=== PATIENT | male | born 1975 | race Caucasian/White ===

== ENCOUNTER 2016-10-14 14:11 | Emergency (ER) | payer SELFPAY ==
[2016-10-14] MEDS ORDERED: Sodium Chloride 0.9% 10 ML Syringe FLUSH PRN (15:06)
[2016-10-14] MEDS ORDERED: Sodium Chloride 0.9% 1,000 ML IV ONE ×2 (15:06→16:04)
[2016-10-14] MEDS ORDERED: LORazepam 2 MG/ML MDV IVPUSH ONE ×2 (15:08→18:51)
--- NOTE | 2016-10-14 15:39 | CR ---
Chest: Portable view of the chest was obtained. Comparison: No previous study. Heart size and mediastinum are normal. Lungs are clear. Bony structures are grossly intact. Impression: 1. Nothing acute is identified on portable chest x-ray. Diagnostic code #1
--- NOTE | 2016-10-14 15:52 | EDM.PDOC ---
ED HPI Behavioral Health - General Chief Complaint: Drug or Alcohol Abuse Stated Complaint: ALCOHOL DETOX Time Seen by Provider: 10/14/16 14:46 Source of Information: Reports: Patient, Family (mother) Exam Limitations: Reports: No limitations - History of Present Illness INITIAL COMMENTS - FREE TEXT/NARRATIVE: Patient presents for evaluation and treatment of alcohol intoxication. Patient has been using alcohol nearly daily for several decades. He is unable to tell me how much he drinks on a daily basis. He states the last 17 days he has been on a valadez. he has been drinking hard liquor and beer. He has been averaging about 8 shots a day and 8-12 beers a day. Patient reports that his last drink of alcohol was about 45 minutes prior to arrival in the ER. He is currently complaining of shakiness, weakness, sweaty, nausea and vomiting. He states that he vomited 3 times today. He denies any syncopal episodes, hematemesis, melena, hematochezia, diarrhea, pruritus or jaundice. Patient reports that he has been experiencing chest pain earlier. He denies any chest pain right now. He states he has "a little bit" of shortness of breath. He reports "a little bit "of lightheadedness and dizziness. Patient was admitted to our hospital on June 04, 2016 for a three-day stay in the hospital for alcohol detox. This was at the urging of his mother. After leaving the hospital he immediately started drinking again. He was seen in the ER on 06-09-16 where he was instructed to followup with [facility] for further alcohol treatment. He has not done this. He has not seen anybody else recently for his alcohol treatment. Patient was again seen in the ER on 07-16-16 following a syncopal episode. He left [place] at that time. Patient states that about 3 weeks ago he was sober for one week. During his sobriety he did not experience any seizures, auditory or visual hallucinations. He states he has never had these with alcohol withdrawal. Patient reports that he has previously utilized [facility] and [facility] for his alcohol addiction. He states he has not seen [facility] the last 3-4 years. The patient's mother is present at the bedside. She states that she feels his hands are more puffy than normal. She feels that he is retaining fluid. She also reports that his complexion is poor. Patient smokes about three quarters of a pack of cigarettes daily for the last 20 years. He states that he uses marijuana occasionally. - Related Data Allergies Allergy/AdvReac Type Severity Reaction Status Date / Time Penicillins Allergy Rash Verified 10/14/16 14:23 Home Medications: Home Meds LORazepam [Ativan] 1 mg PO ASDIRECTED #14 tablet 10/14/16 [Rx] Ondansetron [Zofran ODT] 4 mg PO Q6H PRN #12 tab.dis 10/14/16 [Rx] Past Medical History - Past Health History Medical/Surgical History: Denies Medical/Surgical History Psychiatric History: Reports: Addiction Other Psychiatric History: alcoholism Social & Family History - Family History Cardiac: Reports: Hypertension Other Cardiac Family History: mother with high cholesterol Neurological: Reports: CVA Other Neurological Family History: mother with "mini strokes". maternal uncle with Alzheimer's Endocrine/Metabolic: Reports: Diabetes, type II Oncologic: Reports: Pancreatic, Other (see below) Other Oncologic Family History: throat, melanoma - Tobacco Use Smoking Status *Q: Current Every Day Smoker Years of Tobacco use: 20 Packs/Tins Daily: 0.7 Used Tobacco, but Quit: No Second Hand Smoke Exposure: No - Caffeine Use Caffeine Use: Reports: Soda - Alcohol Use Days Per Week of Alcohol Use: 7 Number of Drinks Per Day: 10 Total Drinks Per Week: 70 - Recreational Drug Use Recreational Drug Use: Yes Drug Use in Last 12 Months: No Recreational Drug Type: Reports: Marijuana/Hashish, Other (see below) Other Recreational Drug Type: lorazapam Recreational Drug Use Frequency: Not Used In Over 1 Year - Living Situation & Occupation Living situation: Reports: single, with family Occupation: employed (at [email or web address] - Review of Systems Review Of Systems: See Below Constitutional: Reports: weakness, diaphoresis Respiratory: Reports: Shortness of Breath ("little bit") Cardiovascular: Reports: Chest pain (earlier; denies any current chest pain) GI/Abdominal: Reports: Nausea, Vomiting (x3 today). Denies: Abdominal pain, Bloody stool, Diarrhea, Hematemesis, Hematochezia, Melena Musculoskeletal: Reports: other (mother feels hands are swollen) Neurological: Reports: Tremors (right hand), Weakness. Denies: Seizure Psychiatric: Denies: Hallucinations ED EXAM, BEHAVIORAL HEALTH - Physical Exam Exam: See Below Exam Limited By: No limitations General Appearance: alert, WD/WN, no apparent distress Throat/Mouth: Normal oropharynx, Normal voice, No airway compromise Respiratory/Chest: no respiratory distress, lungs clear, normal breath sounds Cardiovascular: normal peripheral pulses, regular rate, rhythm, no edema, no murmur GI/Abdominal: normal bowel sounds, soft, non tender COURSE, BEHAVIORAL HEALTH COMP - Course Vital Signs: Last Vital Signs Temp 37.0 C 10/14/16 19:48 Pulse 90 10/14/16 19:48 Resp 16 10/14/16 19:48 BP 148/98 H 10/14/16 19:48 Pulse Ox 99 10/14/16 19:48 Orders, Labs, Meds: Active Orders 24 hr Category Date Time Status EKG 12 Lead [EKG Documentation Completion] [RC] STAT Care 10/14/16 15:09 Active Peripheral IV Care [RC] . DIRECTED Care 10/14/16 15:07 Active Peripheral IV Insertion Adult [OM.PC] Routine Oth 10/14/16 15:06 Ordered Laboratory Tests 10/14/16 10/14/16 10/14/16 Range/Units 15:10 15:10 15:35 WBC 6.55 (4.23-9.07) K/mm3 RBC 5.40 (4.63-6.08) M/mm3 Hgb 16.4 (13.7-17.5) gm/L Hct 47.3 (40.1-51.0) % MCV 87.6 (79.0-92.2) fl MCH 30.4 (25.7-32.2) pg MCHC 34.7 (32.2-35.5) g/dl RDW Std Deviation 45.4 H (35.1-43.9) fL Plt Count 270 (163-337) K/mm3 MPV 9.7 (9.4-12.3) fl Neut % (Auto) 60.7 (34.0-67.9) % Lymph % (Auto) 32.2 (21.8-53.1) % [place] % (Auto) 6.0 (5.3-12.2) % Eos % (Auto) 0.6 L (0.8-7.0) Baso % (Auto) 0.5 (0.1-1.2) % Neut # (Auto) 3.98 (1.78-5.38) K/mm3 Lymph # (Auto) 2.11 (1.32-3.57) K/mm3 [place] # (Auto) 0.39 (0.30-0.82) K/mm3 Eos # (Auto) 0.04 (0.04-0.54) K/mm3 Baso # (Auto) 0.03 (0.01-0.08) K/mm3 PT (8.0-13.0) SECONDS INR APTT (22-36) SECONDS Sodium 134 L (136-145) mEq/L Potassium 4.1 (3.5-5.1) mEq/L Chloride 95 L (98-107) mEq/L Carbon Dioxide 23 (21-32) mEq/L Anion Gap 20.1 H (5-15) BUN 4 L (7-18) mg/dL Creatinine 0.7 (0.7-1.3) mg/dL Est Cr Clr Drug Dosing 121.50 mL/min Estimated GFR (MDRD) > 60 (>60) mL/min BUN/Creatinine Ratio 5.7 L (14-18) Glucose 106 (74-106) mg/dL Calcium 9.0 (8.5-10.1) mg/dL Magnesium 2.3 (1.8-2.4) mg/dl Total Bilirubin 0.5 (0.2-1.0) mg/dL AST 31 (15-37) U/L ALT 40 (16-63) U/L Alkaline Phosphatase 98 (46-116) U/L Troponin I < 0.017 (0.00-0.056) ng/mL Total Protein 8.0 (6.4-8.2) g/dl Albumin 4.3 (3.4-5.0) g/dl Globulin 3.7 gm/dL Albumin/Globulin Ratio 1.2 (1-2) Urine Color (Yellow) Urine Appearance (Clear) Urine pH (5.0-8.0) Ur Specific [place] (1.005-1.030) Urine Protein (Negative) Urine Glucose (UA) (Negative) Urine Ketones (Negative) Urine Occult Blood (Negative) Urine Nitrite (Negative) Urine Bilirubin (Negative) Urine Urobilinogen (0.2-1.0) Ur Leukocyte Esterase (Negative) Urine RBC (0-5) /hpf Urine WBC (0-5) /hpf Ur Epithelial Cells (0-5) /hpf Urine Bacteria (FEW) /hpf Urine Mucus (FEW) /hpf Urine Opiates Screen Negative (NEGATIVE) Ur Buprenorphine Scrn Negative (NEGATIVE) Ur Oxycodone Screen Negative (NEGATIVE) Urine Methadone Screen Negative (NEGATIVE) Ur Propoxyphene Screen Negative (NEGATIVE) Ur Barbiturates Screen Negative (NEGATIVE) Ur Tricyclics Screen Negative (NEGATIVE) Ur Phencyclidine Scrn Negative (NEGATIVE) Ur Amphetamine Screen Negative (NEGATIVE) U Methamphetamines Scrn Negative (NEGATIVE) U Benzodiazepines Scrn Negative (NEGATIVE) U Cocaine Metab Screen Negative (NEGATIVE) U Marijuana (THC) Screen Negative (NEGATIVE) Ethyl Alcohol 0.30 (0.00) gm% 10/14/16 10/14/16 10/14/16 Range/Units 15:35 17:45 17:45 WBC (4.23-9.07) K/mm3 RBC (4.63-6.08) M/mm3 Hgb (13.7-17.5) gm/L Hct (40.1-51.0) % MCV (79.0-92.2) fl MCH (25.7-32.2) pg MCHC (32.2-35.5) g/dl RDW Std Deviation (35.1-43.9) fL Plt Count (163-337) K/mm3 MPV (9.4-12.3) fl Neut % (Auto) (34.0-67.9) % Lymph % (Auto) (21.8-53.1) % [place] % (Auto) (5.3-12.2) % Eos % (Auto) (0.8-7.0) Baso % (Auto) (0.1-1.2) % Neut # (Auto) (1.78-5.38) K/mm3 Lymph # (Auto) (1.32-3.57) K/mm3 [place] # (Auto) (0.30-0.82) K/mm3 Eos # (Auto) (0.04-0.54) K/mm3 Baso # (Auto) (0.01-0.08) K/mm3 PT 10.5 (8.0-13.0) SECONDS INR 0.97 APTT 28 (22-36) SECONDS Sodium (136-145) mEq/L Potassium (3.5-5.1) mEq/L Chloride (98-107) mEq/L Carbon Dioxide (21-32) mEq/L Anion Gap (5-15) BUN (7-18) mg/dL Creatinine (0.7-1.3) mg/dL Est Cr Clr Drug Dosing mL/min Estimated GFR (MDRD) (>60) mL/min BUN/Creatinine Ratio (14-18) Glucose (74-106) mg/dL Calcium (8.5-10.1) mg/dL Magnesium (1.8-2.4) mg/dl Total Bilirubin (0.2-1.0) mg/dL AST (15-37) U/L ALT (16-63) U/L Alkaline Phosphatase (46-116) U/L Troponin I (0.00-0.056) ng/mL Total Protein (6.4-8.2) g/dl Albumin (3.4-5.0) g/dl Globulin gm/dL Albumin/Globulin Ratio (1-2) Urine Color Yellow (Yellow) Urine Appearance Clear (Clear) Urine pH 6.5 (5.0-8.0) Ur Specific [place] 1.010 (1.005-1.030) Urine Protein Negative (Negative) Urine Glucose (UA) Negative (Negative) Urine Ketones Negative (Negative) Urine Occult Blood Negative (Negative) Urine Nitrite Negative (Negative) Urine Bilirubin Negative (Negative) Urine Urobilinogen 0.2 (0.2-1.0) Ur Leukocyte Esterase Negative (Negative) Urine RBC Not seen (0-5) /hpf Urine WBC 0-5 (0-5) /hpf Ur Epithelial Cells Not seen (0-5) /hpf Urine Bacteria Rare (FEW) /hpf Urine Mucus Not seen (FEW) /hpf Urine Opiates Screen (NEGATIVE) Ur Buprenorphine Scrn (NEGATIVE) Ur Oxycodone Screen (NEGATIVE) Urine Methadone Screen (NEGATIVE) Ur Propoxyphene Screen (NEGATIVE) Ur Barbiturates Screen (NEGATIVE) Ur Tricyclics Screen (NEGATIVE) Ur Phencyclidine Scrn (NEGATIVE) Ur Amphetamine Screen (NEGATIVE) U Methamphetamines Scrn (NEGATIVE) U Benzodiazepines Scrn (NEGATIVE) U Cocaine Metab Screen (NEGATIVE) U Marijuana (THC) Screen (NEGATIVE) Ethyl Alcohol 0.23 (0.00) gm% Medications Discontinued Medications Generic Name Dose Route Start Last Admin Trade Name Haydee PRN Reason Stop Dose Admin Sodium Chloride 1,000 mls @ 999 mls/hr 10/14/16 15:06 10/14/16 15:24 Normal Saline IV 10/14/16 16:06 999 mls/hr ONETIME ONE Administration Sodium Chloride 1,000 mls @ 999 mls/hr 10/14/16 16:04 10/14/16 16:20 Normal Saline IV 10/14/16 17:04 999 mls/hr ONETIME ONE Administration Lorazepam 0.5 mg 10/14/16 15:08 10/14/16 15:24 Ativan IVPUSH 10/14/16 15:09 0.5 mg ONETIME ONE Administration Lorazepam 0.5 mg 10/14/16 18:51 10/14/16 19:46 Ativan IVPUSH 10/14/16 18:52 Not Given ONETIME ONE Sodium Chloride 10 ml 10/14/16 15:06 10/14/16 15:34 Saline Flush FLUSH 10 ml ASDIRECTED PRN Administration Keep Vein Open Re-Assessment/Re-Exam: Chest [address] Brennan: 1. Nothing acute is identified on portable chest x-ray. EKG reviewed by myself and Dr. Brown. Shows a NSR of 78 bpm. J point elevation - no ischemic changes. 16:42 Labs have returned. Deepika social human services assistants in ER to help provide additional resources for both the patient and his mother for alcohol treatment in [place]. 17:29 Spoke with [facility] human services. They will come over and evaluate the patient. [facility] Plan will be finish off the second liter of normal saline recheck alcohol. If he is okayed to go to [facility] , we will let him go to the crisis bed tonight. 18:10 [facility] will take the patient tonight. RN will call for further instruction. 18:50 Additional 0.5mg IV ativan given for tonight. Ativan taper written to be started tomorrow. Zofran as needed for nausea. Repeat etoh returned at 0.23 Medical Clearance: 10/14/16 18:45 Patient is clear to go to [facility] to the crisis bed for care. Discharge vs Psych Eval/Treatment:: 10/14/16 18:46 Plan Go to the [facility] crisis bed at the [facility] Departure - Departure Time of Disposition: 18:59 Disposition: Home, Self-Care 01 Condition: fair Clinical Impression: Alcohol abuse Prescriptions: LORazepam [Ativan] 1 mg PO ASDIRECTED #14 tablet Ondansetron [Zofran ODT] 4 mg PO Q6H PRN #12 tab.dis PRN Reason: Nausea Instructions: Alcohol Use Disorder Referrals: Thierno Douglas MD [Primary Care Provider] - Additional Instructions: Go to [facility] the [facility]. You have been accepted to the crisis bed. Zofran every 6 hours sublingual for nausea. Ativan as prescribed you will receive Ativan every 4 hours day 1, Day 2 every 6 hours, day 3 3 times a day, day 4 and 5 twice a day. I recommend you establish with a family medicine provider. Please return to the ER should your symptoms change or worsen. - My Orders Last 24 Hours: My Active Orders 10/14/16 15:06 Peripheral IV Insertion Adult [OM.PC] Routine 10/14/16 15:07 Peripheral IV Care [RC] . DIRECTED 10/14/16 15:09 EKG 12 Lead [EKG Documentation Completion] [RC] STAT - Assessment/Plan Last 24 Hours: My Active Orders 10/14/16 15:06 Peripheral IV Insertion Adult [OM.PC] Routine 10/14/16 15:07 Peripheral IV Care [RC] . DIRECTED 10/14/16 15:09 EKG 12 Lead [EKG Documentation Completion] [RC] STAT
[2016-10-14 19:50] VITALS: BP 148/98
== END 2016-10-14 19:10 | disposition home or self-care (01) ==
LOC: JD.ED 14:11
DX: F10.10 Alcohol abuse, uncomplicated (principal); F17.210 Nicotine dependence, cigarettes, uncomplicated; Z88.0 Allergy status to penicillin; Z79.899 Other long term (current) drug therapy
CPT/HCPCS: 36415; 71010; 80053; 80306; 81001; 83735; 84484; 85025; 85610; 85730; 93005; 96361; 96374; 99285; G0480; J2060; J7040; J7050; 99284

== ENCOUNTER 2018-08-01 16:32 | Emergency (ER) | payer BC ==
[2018-08-01 17:08] VITALS: BP 145/95
[2018-08-01] MEDS ORDERED: Sodium Chloride 0.9% 10 ML Syringe FLUSH PRN (17:37)
[2018-08-01] MEDS ORDERED: cefTRIAXone 2 GM in Sodium Chloride 0.9% 100 ML IV ONE (17:39)
--- NOTE | 2018-08-01 17:44 | EDM.PDOC ---
<Shavon Whalen - Last Filed: 08/01/18 19:12> ED HPI GENERAL MEDICAL PROBLEM - General Chief Complaint: ENT Problem Stated Complaint: SORE & SWOLLEN THROAT/FEVER Time Seen by Provider: 08/01/18 17:10 Source of Information: Reports: Patient, Family (), RN Notes Reviewed History Limitations: Reports: No Limitations - History of Present Illness INITIAL COMMENTS - FREE TEXT/NARRATIVE: Patient is a 43 year old male accompanied by his today in the ED for throat pain and persistent fever. Patient states that he became ill 5 days ago with a sore throat, postnasal drip, and cough. He was seen at the walk in clinic and was found to have a negative strep swab. He progressively became worse, with throat pain, right ear pain, and fevers around 102.0 F. He states he has not been able to eat or drink for the past two days because of the intense throat pain. He also complains of right eye pain, and pain under the jaw on the right side. He states that last night at 10:30 pm he took a Percoset 325/5 which helped him sleep for 2 hours. He took another percoset at 4am. He endorses fever, chills, and nightsweats. He has difficulty opening his mouth. He has had decreased urination in the past few days and feels that he is dehydrated. He denies any known sick contacts and has no recent travel history. Treatments SENIOR ACCOUNTING ASSOCIATE: Reports: Other (see below) Other Treatments SENIOR ACCOUNTING ASSOCIATE: no tylenol today Throat Pain Score (Numeric/FACES): 10 - Related Data Allergies Allergy/AdvReac Type Severity Reaction Status Date / Time Penicillins Allergy Rash Verified 10/14/16 14:23 Home Meds: Home Meds Clindamycin HCl 450 mg PO TID #90 capsule 08/01/18 [Rx] Hydrocodone/Acetaminophen [Hydrocodon-Acetaminophen 5-325] 1 - 2 each PO Q6HR PRN #10 tablet 08/01/18 [Rx] Past Medical History - Past Health History Medical/Surgical History: Denies Medical/Surgical History Psychiatric History: Reports: Addiction Other Psychiatric History: alcoholism Social & Family History - Family History Cardiac: Reports: Hypertension Other Cardiac Family History: mother with high cholesterol Neurological: Reports: CVA Other Neurological Family History: mother with "mini strokes". maternal uncle with Alzheimer's Endocrine/Metabolic: Reports: Diabetes, type II Oncologic: Reports: Pancreatic, Other (See Below) Other Oncologic Family History: throat, melanoma - Caffeine Use Caffeine Use: Reports: Soda - Living Situation & Occupation Living situation: Reports: Single, with Family Occupation: Employed ED ROS ENT - Review of Systems Review Of Systems: ROS reveals no pertinent complaints other than HPI. ED EXAM, ENT - Physical Exam Exam: See Below General Appearance: Alert, WD/WN, Mild Distress Ears: TM Fluid (loss of landmarks in right TM) Nose: Nasal Discharge, Nasal Swelling Mouth/Throat: Pharyngeal Erythema, Throat Pain, Throat Swelling, Tonsillar Erythema, Tonsillar Swelling, Trismus, Uvular Deviation (deviates to the left) Head: Atraumatic, Normocephalic Neck: Lymphadenopathy (R), Tender Lateral (right sided tenderness on palpation) Respiratory/Chest: No Respiratory Distress, Chest Non-Tender Cardiovascular: Regular Rate, Rhythm, No Edema, No Murmur, No Rub GI/Abdominal: Normal Bowel Sounds, Soft, Non-Tender, No Distention, No Mass Neurological: Alert, Oriented, Normal Cognition Psychiatric: Normal Affect, Normal Mood Course - Vital Signs Last Recorded V/S: Last Vital Signs Temp 103.6 F H 08/01/18 17:07 Pulse 102 H 08/01/18 17:07 Resp 20 08/01/18 17:07 BP 145/95 H 08/01/18 17:07 Pulse Ox 97 08/01/18 17:07 - Orders/Labs/Meds Orders: Active Orders 24 hr Category Date Time Status Cardiac Monitoring [RC] . DIRECTED Care 08/01/18 17:37 Active Peripheral IV Care [RC] . DIRECTED Care 08/01/18 17:38 Active CULTURE STREP A CONFIRMATION [RM] Stat Lab 08/01/18 17:35 Results STREP SCRN A RAPID W CULT CONF [RM] Stat Lab 08/01/18 17:35 Results Sodium Chloride 0.9% [Normal Saline] 1,000 ml Med 08/01/18 17:45 Active IV .BOLUS Sodium Chloride 0.9% [Saline Flush] Med 08/01/18 17:37 Active 10 ml FLUSH ASDIRECTED PRN Peripheral IV Insertion Adult [OM.PC] Stat Oth 08/01/18 17:37 Ordered Medication Orders Sodium Chloride (Normal Saline) 1,000 mls @ 1,000 mls/hr IV .BOLUS ELGIN Last Admin: 08/01/18 17:52 Dose: 1,000 mls/hr Sodium Chloride (Saline Flush) 10 ml FLUSH ASDIRECTED PRN PRN Reason: Keep Vein Open Last Admin: 08/01/18 17:52 Dose: 10 ml Labs: Laboratory Tests 08/01/18 08/01/18 Range/Units 17:50 17:50 WBC 13.55 H (4.23-9.07) K/mm3 RBC 5.26 (4.63-6.08) M/mm3 Hgb 15.7 (13.7-17.5) gm/L Hct 46.0 (40.1-51.0) % MCV 87.5 (79.0-92.2) fl MCH 29.8 (25.7-32.2) pg MCHC 34.1 (32.2-35.5) g/dl RDW Std Deviation 43.0 (35.1-43.9) fL Plt Count 274 (163-337) K/mm3 MPV 10.2 (9.4-12.3) fl Neut % (Auto) 81.4 H (34.0-67.9) % Lymph % (Auto) 9.0 L (21.8-53.1) % [place] % (Auto) 8.9 (5.3-12.2) % Eos % (Auto) 0.4 L (0.8-7.0) Baso % (Auto) 0.2 (0.1-1.2) % Neut # (Auto) 11.02 H (1.78-5.38) K/mm3 Lymph # (Auto) 1.22 L (1.32-3.57) K/mm3 [place] # (Auto) 1.21 H (0.30-0.82) K/mm3 Eos # (Auto) 0.05 (0.04-0.54) K/mm3 Baso # (Auto) 0.03 (0.01-0.08) K/mm3 Manual Slide Review Normal smear Sodium 139 (136-145) mEq/L Potassium 3.5 (3.5-5.1) mEq/L Chloride 102 (98-107) mEq/L Carbon Dioxide 25 (21-32) mEq/L Anion Gap 15.5 H (5-15) BUN 6 L (7-18) mg/dL Creatinine 0.9 (0.7-1.3) mg/dL Est Cr Clr Drug Dosing 96.04 mL/min Estimated GFR (MDRD) > 60 (>60) mL/min BUN/Creatinine Ratio 6.7 L (14-18) Glucose 116 H (74-106) mg/dL Calcium 9.2 (8.5-10.1) mg/dL Total Bilirubin 0.8 (0.2-1.0) mg/dL AST 12 L (15-37) U/L ALT 18 (16-63) U/L Alkaline Phosphatase 106 (46-116) U/L C-Reactive Protein 7.9 H* (<1.0) mg/dL Total Protein 8.2 (6.4-8.2) g/dl Albumin 4.1 (3.4-5.0) g/dl Globulin 4.1 gm/dL Albumin/Globulin Ratio 1.0 (1-2) Meds: Medications Generic Name Dose Route Start Last Admin Trade Name Freq PRN Reason Stop Dose Admin Sodium Chloride 1,000 mls @ 1,000 mls/hr 08/01/18 17:45 08/01/18 17:52 Normal Saline IV 1,000 mls/hr .BOLUS ELGIN Administration Sodium Chloride 10 ml 08/01/18 17:37 08/01/18 17:52 Saline Flush FLUSH 10 ml ASDIRECTED PRN Administration Keep Vein Open Discontinued Medications Generic Name Dose Route Start Last Admin Trade Name Haydee PRN Reason Stop Dose Admin Hydromorphone HCl 0.5 mg 08/01/18 18:08 08/01/18 18:35 Dilaudid IVPUSH 08/01/18 18:09 0.5 mg ONETIME ONE Administration Ceftriaxone Sodium 2 gm/ 100 mls @ 200 mls/hr 08/01/18 17:39 08/01/18 17:53 Sodium Chloride IV 08/01/18 18:08 200 mls/hr ONETIME ONE Administration Iopamidol 80 ml 08/01/18 18:25 Isovue-300 (61%) IVPUSH 08/01/18 18:26 ONETIME ONE Ketorolac Tromethamine 30 mg 08/01/18 18:08 08/01/18 18:34 Toradol IVPUSH 08/01/18 18:09 30 mg ONETIME ONE Administration Methylprednisolone Sodium Succinate 125 mg 08/01/18 17:55 08/01/18 18:03 Solu-Medrol IVPUSH 08/01/18 17:56 125 mg ONETIME ONE Administration - Re-Assessments/Exams Free Text/Narrative Re-Assessment/Exam: 08/01/18 19:05 Patient is "feeling so much better" after some Tordol, steroid, and IV fluids. We are still waiting on the CT view the extent of the abscess. Patient does have WBC count of 13.55 and CRP 7.9. Patient is being treated with ceftriaxone IV (patient is allergic to PCN). Strep quick swab was negative, culture pending. Influenza swab negative. 08/01/18 19:13 Departure - Departure Disposition: Home, Self-Care 01 Clinical Impression: Acute bacterial tonsillitis Pharyngitis Qualifiers: Pharyngitis/tonsillitis etiology: other specified organisms Qualified Code(s): J02.8 - Acute pharyngitis due to other specified organisms - Discharge Information Prescriptions: Hydrocodone/Acetaminophen [Hydrocodon-Acetaminophen 5-325] 1 - 2 each PO Q6HR PRN #10 tablet PRN Reason: Pain Clindamycin HCl 450 mg PO TID #90 capsule Referrals: PCP,None [Primary Care Provider] - Mike Bowman MD [Ordering Only Provider] - 1 Week Forms: ED Department Discharge, ED Return to Work/School Form Additional Instructions: Take clindamycin 450mg 3 times per day for 10 days. Take motrin or aleve for pain. If that does not help, take a hydrocodone. Please return if you are worse or see Dr Bowman. - My Orders Last 24 Hours: My Active Orders 08/01/18 17:35 CULTURE STREP A CONFIRMATION [RM] Stat STREP SCRN A RAPID W CULT CONF [RM] Stat 08/01/18 17:37 Cardiac Monitoring [RC] . DIRECTED Sodium Chloride 0.9% [Saline Flush] 10 ml FLUSH ASDIRECTED PRN Peripheral IV Insertion Adult [OM.PC] Stat 08/01/18 17:38 Peripheral IV Care [RC] . DIRECTED 08/01/18 17:45 Sodium Chloride 0.9% [Normal Saline] 1,000 ml IV .BOLUS - Assessment/Plan Last 24 Hours: My Active Orders 08/01/18 17:35 CULTURE STREP A CONFIRMATION [RM] Stat STREP SCRN A RAPID W CULT CONF [RM] Stat 08/01/18 17:37 Cardiac Monitoring [RC] . DIRECTED Sodium Chloride 0.9% [Saline Flush] 10 ml FLUSH ASDIRECTED PRN Peripheral IV Insertion Adult [OM.PC] Stat 08/01/18 17:38 Peripheral IV Care [RC] . DIRECTED 08/01/18 17:45 Sodium Chloride 0.9% [Normal Saline] 1,000 ml IV .BOLUS <Ja Lester - Last Filed: 08/01/18 20:19> Course - Re-Assessments/Exams Free Text/Narrative Re-Assessment/Exam: 08/01/18 20:09 I examined the patient myself and I agree with Shavon's assessment and plan. I ordered labs, toradol, steroids and a CT of his neck. His WBC was elevated at 13.55. His anion gap was elevated at 15.5. His glucose was 116. His CRP was elevated at 7.9. The CT shows soft tissue swelling in the region of the right palatine tonsil with soft tissue swelling extending inferiorly to level of the top of the larynx. Focal low density region is seen measuring 1.3cm felt to represent focal infection rather than well-defined abscess. This does put the patient at risk for future abscess. Inflammatory thickening of the uvula. Slightly prominent lymph nodes which are felt to be reactive. I gave him a dose of rocephin 2 grams here. I will get him on some clindamycin and have him follow up with ENT if he is not better. Departure - Departure Time of Disposition: 20:15 Condition: Good - Discharge Information *PRESCRIPTION DRUG MONITORING PROGRAM REVIEWED*: No *COPY OF PRESCRIPTION DRUG MONITORING REPORT IN PATIENT DION: No
[2018-08-01] MEDS ORDERED: Sodium Chloride 0.9% 1,000 ML IV SCH (17:45)
[2018-08-01] MEDS ORDERED: methylPREDNISolone Sodium Succinate 125 MG/2 ML SDV IVPUSH ONE (17:55)
[2018-08-01] MEDS ORDERED: HYDROmorphone 1 MG/ML Syringe IVPUSH ONE (18:08)
[2018-08-01] MEDS ORDERED: Ketorolac 30 MG/ML SDV IVPUSH ONE (18:08)
[2018-08-01] MEDS ORDERED: Iopamidol 612 MG/ML 100 ML Bottle IVPUSH ONE (18:25)
--- NOTE | 2018-08-01 19:46 | CT ---
CT neck Technique: Multiple axial sections through the neck were obtained. Intravenous contrast was utilized. Reconstructed coronal and sagittal images were reviewed. Findings: Soft tissue swelling is seen within the region of the right palatine tonsil. Low-density area seen in this region measuring 1.3 cm which most likely represents focal infection rather than a well-defined abscess although patient is at risk for future abscess. Edema extends more inferiorly to the top of the larynx. Thickening of the uvula is also noted. Epiglottis is within normal limits. Slightly prominent lymph nodes are seen which likely are reactive. Paranasal sinuses are clear. Parotid and submandibular salivary glands are within normal limits. Thyroid gland appears within normal limits. Small portion of the visualized lung apices are clear. Impression: 1. Soft tissue swelling in the region of the right palatine tonsil with soft tissue swelling extending inferiorly to level of the top of the larynx. Focal low density region is seen measuring 1.3 cm felt to represent focal infection rather than well-defined abscess. This does put the patient at risk for future abscess. 2. Inflammatory thickening of the uvula. 3. Slightly prominent lymph nodes which are felt to be reactive. Diagnostic code #3
== END 2018-08-01 20:30 | disposition home or self-care (01) ==
LOC: JD.ED 16:32
DX: J03.80 Acute tonsillitis due to other specified organisms (principal); J02.8 Acute pharyngitis due to other specified organisms; B96.89 Other specified bacterial agents as the cause of diseases classified elsewhere
CPT/HCPCS: 36415; 70491; 80053; 85025; 86140; 87081; 87430; 87804; 96361; 96365; 96375; 99284; J0696; J1170; J1885; J2930; J7030; J7040; 99283

== ENCOUNTER 2018-08-03 18:37 | Emergency (ER) | payer BC ==
[2018-08-03 18:46] VITALS: BP 131/93
[2018-08-03] MEDS ORDERED: Sodium Chloride 0.9% 10 ML Syringe FLUSH PRN (19:16)
[2018-08-03] MEDS ORDERED: HYDROmorphone 1 MG/ML Syringe IVPUSH ONE ×2 (19:16→20:54)
[2018-08-03] MEDS ORDERED: Sodium Chloride 0.9% 500 ML IV ONE (19:18)
[2018-08-03] MEDS ORDERED: cefTRIAXone 2 GM in Sodium Chloride 0.9% 100 ML IV ONE (19:27)
[2018-08-03] MEDS ORDERED: methylPREDNISolone Sodium Succinate 125 MG/2 ML SDV IVPUSH ONE (19:27)
[2018-08-03] MEDS ORDERED: Ketorolac 30 MG/ML SDV IVPUSH SCH (19:30)
[2018-08-03] MEDS ORDERED: cefTRIAXone 2 GM AdvVial IV ONE (19:45)
[2018-08-03] MEDS ORDERED: Sodium Chloride 0.9% 100 ML ONE (19:45)
--- NOTE | 2018-08-03 20:07 | EDM.PDOC ---
ED HPI GENERAL MEDICAL PROBLEM - General Chief Complaint: ENT Problem Stated Complaint: SORE THROAT Time Seen by Provider: 08/03/18 18:54 Source of Information: Reports: Patient, Family (spouse), RN Notes Reviewed - History of Present Illness INITIAL COMMENTS - FREE TEXT/NARRATIVE: 43 year old male comes in with continued throat pain, sensation of swelling R neck. Developed sore throat about 6 days ago, was seen at clinic about 4 days ago, neg strep so nothing done. Pain and infection worsened so did come to ED 2 days ago, did have labs, neck CT which showed area of infection R neck, no abcess. He was given IV abx, pain meds, felt better. has run out of pain meds , pain still quite severe, especially to swallow. Still has low grade fever this evening. On clindamycin 450 tid, not sure how many doses he has taken. - Related Data Allergies Allergy/AdvReac Type Severity Reaction Status Date / Time Penicillins Allergy Rash Verified 08/03/18 18:46 Home Meds: Home Meds Clindamycin HCl 450 mg PO TID #90 capsule 08/01/18 [Rx] Hydrocodone/Acetaminophen [Hydrocodon-Acetaminophen 5-325] 1 - 2 each PO Q6HR PRN #10 tablet 08/01/18 [Rx] Past Medical History - Past Health History Medical/Surgical History: Denies Medical/Surgical History Psychiatric History: Reports: Addiction Other Psychiatric History: alcoholism Social & Family History - Family History Family Medical History: Noncontributory Cardiac: Reports: Hypertension Other Cardiac Family History: mother with high cholesterol Neurological: Reports: CVA Other Neurological Family History: mother with "mini strokes". maternal uncle with Alzheimer's Endocrine/Metabolic: Reports: Diabetes, type II Oncologic: Reports: Pancreatic, Other (See Below) Other Oncologic Family History: throat, melanoma - Tobacco Use Smoking Status *Q: Current Every Day Smoker Years of Tobacco use: 28 Packs/Tins Daily: 0.5 - Caffeine Use Caffeine Use: Reports: Energy Drinks, Soda - Recreational Drug Use Recreational Drug Use: No - Living Situation & Occupation Living situation: Reports: Single, with Family Occupation: Employed ED ROS ENT - Review of Systems Review Of Systems: See Below Constitutional: Reports: Fever, Chills HEENT: Reports: Throat Pain, Throat Swelling (R throat) Respiratory: Denies: Shortness of Breath, Cough Cardiovascular: Denies: Chest Pain GI/Abdominal: Denies: Abdominal Pain, Nausea, Vomiting Musculoskeletal: Reports: No Symptoms Skin: Denies: Rash Neurological: Reports: No Symptoms ED EXAM, ENT - Physical Exam Exam: See Below General Appearance: Alert, Mild Distress Mouth/Throat: Tonsillar Exudates (bilat, more on the right), Tonsillar Swelling (bilat, more on the right) Head: No: Facial Swelling, Facial Tenderness Neck: Lymphadenopathy (L), Lymphadenopathy (R), Tender Lateral (R sided tenderness and fullness, feels mildly more swollen than right, not visually more swollen. ) Respiratory/Chest: No Respiratory Distress GI/Abdominal: Soft, Non-Tender Back: No: CVA Tenderness (L), CVA Tenderness (R) Extremities: Normal Inspection, Normal Range of Motion Neurological: Alert, Oriented, No Motor/Sensory Deficits Skin: Warm, Dry, Normal Color Course - Vital Signs Last Recorded V/S: Last Vital Signs Temp 100.9 F H 08/03/18 18:41 Pulse 82 08/03/18 18:41 Resp 18 08/03/18 18:41 BP 131/93 H 08/03/18 18:41 Pulse Ox 97 08/03/18 18:41 - Orders/Labs/Meds Orders: Active Orders 24 hr Category Date Time Status Peripheral IV Care [RC] . DIRECTED Care 08/03/18 19:18 Active Ketorolac [Toradol] Med 08/03/18 19:30 Active 30 mg IVPUSH ONETIME Sodium Chloride 0.9% [Saline Flush] Med 08/03/18 19:16 Active 10 ml FLUSH ASDIRECTED PRN Peripheral IV Insertion Adult [OM.PC] Stat Oth 08/03/18 19:16 Ordered Medication Orders Ketorolac Tromethamine (Toradol) 30 mg IVPUSH ONETIME ELGIN Last Admin: 08/03/18 19:57 Dose: 30 mg Sodium Chloride (Saline Flush) 10 ml FLUSH ASDIRECTED PRN PRN Reason: Keep Vein Open Last Admin: 08/03/18 19:42 Dose: 10 ml Meds: Medications Generic Name Dose Route Start Last Admin Trade Name Freq PRN Reason Stop Dose Admin Ketorolac Tromethamine 30 mg 08/03/18 19:30 08/03/18 19:57 Toradol IVPUSH 30 mg ONETIME ELGIN Administration Sodium Chloride 10 ml 08/03/18 19:16 08/03/18 19:42 Saline Flush FLUSH 10 ml ASDIRECTED PRN Administration Keep Vein Open Discontinued Medications Generic Name Dose Route Start Last Admin Trade Name Haydee PRN Reason Stop Dose Admin Ceftriaxone Sodium Confirm 08/03/18 19:45 08/03/18 20:02 Rocephin Administered 08/03/18 19:46 Not Given Dose 2 gm IV .STK-MED ONE Hydromorphone HCl 1 mg 08/03/18 19:16 08/03/18 19:42 Dilaudid IVPUSH 08/03/18 19:17 1 mg ONETIME ONE Administration Sodium Chloride 500 mls @ 999 mls/hr 08/03/18 19:18 08/03/18 19:40 Normal Saline IV 08/03/18 19:48 999 mls/hr .BOLUS ONE Administration Ceftriaxone Sodium 2 gm/ 100 mls @ 200 mls/hr 08/03/18 19:27 08/03/18 19:58 Sodium Chloride IV 08/03/18 19:56 200 mls/hr ONETIME ONE Administration Sodium Chloride Confirm 08/03/18 19:45 08/03/18 20:02 Normal Saline Administered 08/03/18 19:46 Not Given Dose 100 mls @ as directed .ROUTE .STK-MED ONE Methylprednisolone Sodium Succinate 125 mg 08/03/18 19:27 08/03/18 19:57 Solu-Medrol IVPUSH 08/03/18 19:28 125 mg ONETIME ONE Administration - Re-Assessments/Exams Free Text/Narrative Re-Assessment/Exam: 08/03/18 20:41 Feeling much better after Dilaudid 0.5 mg IV, torodol 30 IV, has also been given solumedrol 125 IV. Have discussed option to repeat CT to see if abcess developing, downside more radiation exposure to neck. He prefers to wait, give this more time to get better. I am going to keep him on the clindamycin 450 tid , add cephalexin 500 qid for 1 week, add prednisone 40 mg q AM for 5 days. Discharge instr. as documented. Departure - Departure Time of Disposition: 20:44 Disposition: Home, Self-Care 01 Condition: Fair Clinical Impression: Acute tonsillitis Qualifiers: Pharyngitis/tonsillitis etiology: unspecified etiology Qualified Code(s): J03.90 - Acute tonsillitis, unspecified - Discharge Information Referrals: PCP,None [Primary Care Provider] - Forms: ED Department Discharge Additional Instructions: continue clindamycin 450 mg 3 times daily, begin cephalexin 500 mg 4 times daily starting tomorrow AM. Prednisone 40 mg q AM for the next 5 days. percocet q 6 to 8 hr for severe pain as needed, after that tylenol up to 3 times daily when pain starts improving. See medical provider at [facility] or at our [facility] Tuesday, call for appt. Return to work Tuesday as tolerated. - My Orders Last 24 Hours: My Active Orders 08/03/18 19:16 Sodium Chloride 0.9% [Saline Flush] 10 ml FLUSH ASDIRECTED PRN Peripheral IV Insertion Adult [OM.PC] Stat 08/03/18 19:18 Peripheral IV Care [RC] . DIRECTED 08/03/18 19:30 Ketorolac [Toradol] 30 mg IVPUSH ONETIME - Assessment/Plan Last 24 Hours: My Active Orders 08/03/18 19:16 Sodium Chloride 0.9% [Saline Flush] 10 ml FLUSH ASDIRECTED PRN Peripheral IV Insertion Adult [OM.PC] Stat 08/03/18 19:18 Peripheral IV Care [RC] . DIRECTED 08/03/18 19:30 Ketorolac [Toradol] 30 mg IVPUSH ONETIME
== END 2018-08-03 21:14 | disposition home or self-care (01) ==
LOC: JD.ED 18:37
DX: J03.90 Acute tonsillitis, unspecified (principal); E11.9 Type 2 diabetes mellitus without complications; F17.210 Nicotine dependence, cigarettes, uncomplicated; Z88.0 Allergy status to penicillin
CPT/HCPCS: 96365; 96375; 96376; 99283; J0696; J1170; J1885; J2930; J7030; J7040; 99284

== ENCOUNTER 2021-05-28 18:20 | Emergency (ER) | payer SELFPAY ==
[2021-05-28] MEDS ORDERED: Sodium Chloride 0.9% 10 ML Syringe FLUSH PRN (18:32)
--- NOTE | 2021-05-28 18:45 | EDM.PDOCBH ---
<Noel Brady M - Last Filed: 06/01/21 10:17> ED HPI GENERAL MEDICAL PROBLEM - General Chief Complaint: Drug or Alcohol Abuse Stated Complaint: [facility] Time Seen by Provider: 05/28/21 18:27 - Related Data Allergies Allergy/AdvReac Type Severity Reaction Status Date / Time Penicillins Allergy Rash Verified 08/03/18 18:46 Home Meds: Home Meds Clindamycin HCl 450 mg PO TID #90 capsule 08/01/18 [Rx] Hydrocodone/Acetaminophen [HYDROcodone-Acetaminophen 5-325 MG] 1 - 2 each PO Q6HR PRN #10 tablet 08/01/18 [Rx] ED ROS GENERAL - Review of Systems Review Of Systems: Comprehensive ROS is negative, except as noted in HPI. ED EXAM, BEHAVIORAL HEALTH - Physical Exam Exam: See Below Exam Limited By: Intoxication General Appearance: Alert, WD/WN, Mild Distress (Due to tremors; patient feels as though he is detoxing) Ears: Normal External Exam, Hearing Grossly Normal Nose: Normal Inspection Throat/Mouth: Normal Inspection, Normal Lips, Normal Voice, No Airway Compromise Head: Atraumatic, Normocephalic Neck: Normal Inspection, Supple Respiratory/Chest: No Respiratory Distress, Lungs Clear, Normal Breath Sounds, No Accessory Muscle Use, Chest Non-Tender Cardiovascular: Normal Peripheral Pulses, Regular Rate, Rhythm, No Edema, No Murmur GI/Abdominal: Normal Bowel Sounds, Soft, Non-Tender, No Distention (Male) Exam: Deferred Rectal (Males) Exam: Deferred Back Exam: Normal Inspection Extremities: Normal Inspection Neurological: Alert, Normal Mood/Affect Psychiatric: Alert, Normal Affect, Normal Cognition, Normal Mood, Oriented Skin Exam: Warm, Dry, Intact, Normal color, No rash COURSE, BEHAVIORAL HEALTH COMP - Course Re-Assessment/Re-Exam: I have assumed care of this patient from [facility]. Patient is complaining nausea so I have ordered for him to receive Reglan I have ordered for the patient to receive 40 mEq of potassium p.o. Patient is awake and alert in the room. States he feels nauseated despite receiving Reglan. I did have a discussion with him regarding whether he wants treatment or not. I offered to have [facility] come and evaluate him and he states that at this time he does not want treatment. He states he wants to go home and try to detox and become sober on his own. I did remind him that at any time he could go to [facility] for open enrollment and he states he is aware of this as he states he has been there for treatment in the past. 05/28/2021 22:57 Patient states he is still feeling nauseated and also states that when he stands up he feels almost as if he is going to pass out. Told him I would give him 1 more liter of IV fluids and then he likely will be discharged home as he is not wanting to be sent for treatment. Patient is agreeable to this plan. Departure - Departure Time of Disposition: 00:20 Disposition: Home, Self-Care 01 Condition: Good Clinical Impression: Alcohol withdrawal Qualifiers: Complication of substance-induced condition: uncomplicated Qualified Code(s): F10.230 - Alcohol dependence with withdrawal, uncomplicated - Discharge Information Instructions: Alcohol Withdrawal Syndrome, [id number] Referrals: PCP,None [Primary Care Provider] - Forms: ED Department Discharge Additional Instructions: You were seen in the emergency department this evening due to complaints of alcohol withdrawals. Blood alcohol in the emergency department was 0.14. You did receive 2 L of IV fluids as well as nausea medication. As discussed, you stated you did not want to have [facility] you for treatment and wanted to be discharged home. Recommend that you go to [facility] first thing in the morning for their open enrollment for assistance with your alcohol withdrawals and staying sober. <Honey Jeffrey - Last Filed: 06/02/21 21:18> ED HPI GENERAL MEDICAL PROBLEM - General Source of Information: Reports: Patient, RN Notes Reviewed History Limitations: Reports: No Limitations - History of Present Illness INITIAL COMMENTS - FREE TEXT/NARRATIVE: Patient is a 46-year-old male presenting to the emergency department with complaints of alcohol withdrawal. He reports for the last week, he has been drinking 10-12 beers daily. Prior to this, he had been sober for 4-1/2 years. Today he is drink a sixpack of beer with his last drink being around 11 AM. He is complaining of nausea and tremors. Received Zofran from EMS in route to ER. Patient has gone through alcohol treatment in the past. Denies any history of seizures with alcohol withdrawal. Denies any illicit drug use. Past Medical History - Past Health History Medical/Surgical History: Denies Medical/Surgical History Psychiatric History: Reports: Addiction Other Psychiatric History: alcoholism Social & Family History - Family History Family Medical History: No Pertinent Family History Cardiac: Reports: Hypertension Other Cardiac Family History: mother with high cholesterol Neurological: Reports: CVA Other Neurological Family History: mother with "mini strokes". maternal uncle with Alzheimer's Endocrine/Metabolic: Reports: Diabetes, type II Oncologic: Reports: Pancreatic, Other (See Below) Other Oncologic Family History: throat, melanoma - Caffeine Use Caffeine Use: Reports: Energy Drinks, Soda - Living Situation & Occupation Living situation: Reports: Single, with Family Occupation: Employed [employer] Interpretation EKG Date: 05/28/21 Time: 18:44 Rhythm: NSR Rate (Beats/Min): 91 [place]: Normal P-Wave: Present QRS: Normal ST-T: Elevated (Early repolarization pattern) QT: Normal COURSE, BEHAVIORAL HEALTH COMP - Course Vital Signs: Last Vital Signs Temp 100.1 F 05/28/21 18:36 Pulse 95 05/28/21 18:36 Resp 20 05/29/21 00:20 BP 131/82 05/29/21 00:20 Pulse Ox 95 05/29/21 00:20 Orders, Labs, Meds: Laboratory Tests 05/28/21 05/28/21 05/28/21 Range/Units 18:45 19:00 19:00 WBC 5.36 (4.23-9.07) K/mm3 RBC 5.01 (4.63-6.08) M/mm3 Hgb 15.1 (13.7-17.5) gm/dl Hct 42.6 (40.1-51.0) % MCV 85.0 (79.0-92.2) fl MCH 30.1 (25.7-32.2) pg MCHC 35.4 (32.2-35.5) g/dl RDW Std Deviation 40.6 (35.1-43.9) fL Plt Count 229 (163-337) K/mm3 MPV 9.4 (9.4-12.3) fl Neut % (Auto) 61.3 (34.0-67.9) % Lymph % (Auto) 29.9 (21.8-53.1) % [place] % (Auto) 7.5 (5.3-12.2) % Eos % (Auto) 0.7 L (0.8-7.0) Baso % (Auto) 0.4 (0.1-1.2) % Neut # (Auto) 3.29 (1.78-5.38) K/mm3 Lymph # (Auto) 1.60 (1.32-3.57) K/mm3 [place] # (Auto) 0.40 (0.30-0.82) K/mm3 Eos # (Auto) 0.04 (0.04-0.54) K/mm3 Baso # (Auto) 0.02 (0.01-0.08) K/mm3 Sodium 128 L D (136-145) mEq/L Potassium 3.2 L (3.5-5.1) mEq/L Chloride 91 L (98-107) mEq/L Carbon Dioxide 24 (21-32) mEq/L Anion Gap 16.2 H (5-15) BUN 4 L (7-18) mg/dL Creatinine 0.7 (0.7-1.3) mg/dL Est Cr Clr Drug Dosing 115.42 mL/min Estimated GFR (MDRD) > 60 (>60) mL/min BUN/Creatinine Ratio 5.7 L (14-18) Glucose 169 H (70-99) mg/dL Calcium 8.1 L (8.5-10.1) mg/dL Total Bilirubin 0.6 (0.2-1.0) mg/dL AST 90 H (15-37) U/L ALT 154 H (16-63) U/L Alkaline Phosphatase 81 (46-116) U/L Total Protein 7.0 (6.4-8.2) g/dl Albumin 3.9 (3.4-5.0) g/dl Globulin 3.1 gm/dL Albumin/Globulin Ratio 1.3 (1-2) TSH 3rd Generation (0.358-3.74) uIU/mL Salicylates (2.8-20) mg/dL Urine Opiates Screen Negative (AJHCFM=034) Ur Buprenorphine Scrn Negative (CUTOFF=10) Ur Oxycodone Screen Negative (MQZ1XV=070) Urine Methadone Screen Negative (IZD9OJ=907) Ur Propoxyphene Screen Negative (QHNSUX=301) Acetaminophen (10-30) ug/mL Ur Barbiturates Screen Negative (NMYJIN=926) Ur Tricyclics Screen Negative (RIOOWL=877) Ur Phencyclidine Scrn Negative (CUTOFF=25) Ur Amphetamine Screen Negative (PJCXHG=545) U Methamphetamines Scrn Negative (CECBHR=184) U Benzodiazepines Scrn Negative (TIHEGR=804) U Cocaine Metab Screen Negative (MMIFGH=512) U Marijuana (THC) Screen Negative (CUTOFF=50) Ethyl Alcohol 0.14 (0.00) gm% 05/28/21 05/28/21 Range/Units 19:00 19:00 WBC (4.23-9.07) K/mm3 RBC (4.63-6.08) M/mm3 Hgb (13.7-17.5) gm/dl Hct (40.1-51.0) % MCV (79.0-92.2) fl MCH (25.7-32.2) pg MCHC (32.2-35.5) g/dl RDW Std Deviation (35.1-43.9) fL Plt Count (163-337) K/mm3 MPV (9.4-12.3) fl Neut % (Auto) (34.0-67.9) % Lymph % (Auto) (21.8-53.1) % [place] % (Auto) (5.3-12.2) % Eos % (Auto) (0.8-7.0) Baso % (Auto) (0.1-1.2) % Neut # (Auto) (1.78-5.38) K/mm3 Lymph # (Auto) (1.32-3.57) K/mm3 [place] # (Auto) (0.30-0.82) K/mm3 Eos # (Auto) (0.04-0.54) K/mm3 Baso # (Auto) (0.01-0.08) K/mm3 Sodium (136-145) mEq/L Potassium (3.5-5.1) mEq/L Chloride (98-107) mEq/L Carbon Dioxide (21-32) mEq/L Anion Gap (5-15) BUN (7-18) mg/dL Creatinine (0.7-1.3) mg/dL Est Cr Clr Drug Dosing mL/min Estimated GFR (MDRD) (>60) mL/min BUN/Creatinine Ratio (14-18) Glucose (70-99) mg/dL Calcium (8.5-10.1) mg/dL Total Bilirubin (0.2-1.0) mg/dL AST (15-37) U/L ALT (16-63) U/L Alkaline Phosphatase (46-116) U/L Total Protein (6.4-8.2) g/dl Albumin (3.4-5.0) g/dl Globulin gm/dL Albumin/Globulin Ratio (1-2) TSH 3rd Generation 0.880 (0.358-3.74) uIU/mL Salicylates 2.2 L (2.8-20) mg/dL Urine Opiates Screen (OJRYQY=961) Ur Buprenorphine Scrn (CUTOFF=10) Ur Oxycodone Screen (GFB9VL=141) Urine Methadone Screen (EYR4OA=708) Ur Propoxyphene Screen (VRHCXT=632) Acetaminophen 0 L (10-30) ug/mL Ur Barbiturates Screen (LTNXFD=033) Ur Tricyclics Screen (WKYXNL=883) Ur Phencyclidine Scrn (CUTOFF=25) Ur Amphetamine Screen (DQVMJO=661) U Methamphetamines Scrn (PTFGKJ=093) U Benzodiazepines Scrn (ELXCBA=354) U Cocaine Metab Screen (DERYDS=392) U Marijuana (THC) Screen (CUTOFF=50) Ethyl Alcohol (0.00) gm% Medications Discontinued Medications Generic Name Dose Route Start Last Admin Trade Name Freq PRN Reason Stop Dose Admin Sodium Chloride 1,000 mls @ 999 mls/hr 05/28/21 20:06 05/28/21 20:17 Normal Saline IV 05/28/21 21:06 999 mls/hr ONETIME ONE Administration Lactated Ringer's 1,000 mls @ 999 mls/hr 05/28/21 22:56 05/28/21 23:10 Ringers, Lactated IV 05/28/21 23:56 999 mls/hr .BOLUS ONE Administration Metoclopramide HCl 5 mg 05/28/21 20:05 05/28/21 20:17 Metoclopramide 10 Mg/2 Ml Sdv IVPUSH 05/28/21 20:06 5 mg ONETIME ONE Administration Ondansetron HCl 4 mg 05/28/21 22:07 05/28/21 22:33 Ondansetron 4 Mg/2 Ml Sdv IVPUSH 05/28/21 22:08 4 mg ONETIME ONE Administration Potassium Chloride 40 meq 05/28/21 20:07 05/28/21 21:07 Potassium Chloride 20 Meq Tab.Er PO 05/28/21 20:08 40 meq ONETIME ONE Administration Sodium Chloride 10 ml 05/28/21 18:32 05/28/21 20:18 Sodium Chloride 0.9% 10 Ml Syringe FLUSH 10 ml ASDIRECTED PRN Administration Keep Vein Open Medical Clearance: Patient is a patient is a 46-year-old male presenting to the emergency department with complaints of alcohol withdrawal. Reports being sober for 4-1/2 years and over the course of last week he has been binge drinking. He estimates 10-12 beers per day. He drank a sixpack earlier today. Denies alcohol consumption is 11 AM. Exam is unremarkable. He intermittently has tremor of his hands, however when distracted the tremoring stops. Received Zofran via EMS. I have ordered blood work, drug screen, EKG. I will give him a 1 L bolus of normal saline pending EtOH level. 05/28/21 20:11 Case discussed with Noel Brady NP. She will assume care and disposition of patient due to end of shift.
[2021-05-28 18:53] VITALS: PULSE 95
[2021-05-28] MEDS ORDERED: Metoclopramide 10 MG/2 ML SDV IVPUSH ONE (20:05)
[2021-05-28] MEDS ORDERED: Sodium Chloride 0.9% 1,000 ML IV ONE (20:06)
[2021-05-28] MEDS ORDERED: Potassium Chloride 20 MEQ Tab.ER PO ONE (20:07)
[2021-05-28] MEDS ORDERED: Ondansetron 4 MG/2 ML SDV IVPUSH ONE (22:07)
[2021-05-28] MEDS ORDERED: Lactated Ringers 1,000 ML IV ONE (22:56)
[2021-05-29 02:31] VITALS: BP 131/82
== END 2021-05-29 00:20 | disposition home or self-care (01) ==
LOC: JD.ED 18:20
DX: F10.230 Alcohol dependence with withdrawal, uncomplicated (principal); R25.1 Tremor, unspecified; Y90.5 Blood alcohol level of 100-119 mg/100 ml; Z88.0 Allergy status to penicillin
CPT/HCPCS: 36415; 80053; 80143; 80179; 80306; 80307; 84443; 85025; 93005; 96374; 96375; 99285; A9270; J2405; J2765; J7030; J7120